=== PATIENT | male | born 1940 | race Caucasian/White ===

== ENCOUNTER 2019-05-10 07:08 | Emergency (ER) | payer MEDICARE, BC ==
--- NOTE | 2019-05-10 07:19 | ED ---
Psychiatric Complaint - HPI Summary HPI Summary: 78-year-old male with a significant past medical history of anxiety, depression presents to the emergency department today with a chief complaint of suicidal ideation. Patient states the last few weeks he has become significantly more depressed due to a "thumping in his head". He states because of the something he has not been able to go to sleep and it has been affecting his mood. he states it is been causing him to think about killing himself so he may get some rest. He states he does not have a plan but did mention that he has checked out the bridge at [facility] and thought that would be a quick way "to do it" but he has not inspected the railings yet. He states due to sleep disturbance he has had an decrease in appetite and reports a 15 pound weight loss over the last month. He denies any recent alcohol, recreational drug use, smoking. he states he does not have a counselor. Patient was brought in by 941 order after comes he himself called the police as he felt worried that he would commit suicide. He is very cooperative and seeking help. He has not made any suicidal gestures and denies a past history of suicidal gestures. He does admit to having firearms at home including a 22 and a shotgun. he states he does not currently take any medication other than melatonin which he uses for sleep. His arrived shortly after his arrival. He states he had similar feelings in the past" a few years ago" and medication did not help him. He states he went to [place] as a psychological inpatient where they did ECT which he says helped tremendously. He is looking to have this treatment done to him again. He denies any physical pain including chest pain, shortness breath, abdominal pain, pain in his ears, changes in vision, pain with urination, hearing voices. - History Of Current Complaint Time Seen by Provider: 05/10/19 07:18 Hx Obtained From: Patient Onset/Duration: Lasting Weeks Timing: Constant Severity Initially: Mild Severity Currently: Severe Character: Depressed, Anxious Aggravating Factor(s): Recent Stress - Buzzing in his head Alleviating Factor(s): Other - ECT Associated Signs And Symptoms: Positive: Sleep Disturbance, Appetite Change Related History: Positive For: Prior Psychiatric Issues Has Suicidal: Reports: Thoughts, With A Plan. Denies: Demonstrates Gesture, Has Prior Attempt(s) Has Homicidal: Denies: Thoughts - Risk Factor(s) Completed Suicide Risk Factors: Male, Age Greater Than 60, White [place] - Allergies/Home Medications Allergies/Adverse Reactions: Allergies Allergy/AdvReac Type Severity Reaction Status Date / Time MS Bacitracin Allergy Severe Swelling Verified 07/31/14 15:28 [From Neosporin] MS Neomycin [From Neosporin] Allergy Severe Swelling Verified 07/31/14 15:28 MS Polymyxin B Allergy Severe Swelling Verified 07/31/14 15:28 [From Neosporin] Chemicals AdvReac Mild See Comment Uncoded 07/31/14 15:28 Home Medications: Home Medications NK [No Home Medications Reported] 05/10/19 [History Confirmed 05/10/19] PMH/Surg Hx/FS Hx/Imm Hx Endocrine/Hematology History: Denies: Hx Anticoagulant Therapy, Hx Diabetes, Hx Thyroid Disease Cardiovascular History: Reports: Hx Hypertension Respiratory History: Denies: Hx Asthma, Hx Chronic Obstructive Pulmonary Disease (COPD) GI History: Denies: Hx Ulcer Psychiatric History: Reports: Hx Anxiety, Hx Depression Denies: Hx Eating Disorder, Hx of Violent Episodes Against Others - Cancer History Cancer Type, Location and Year: 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 - Surgical History Surgery Procedure, Year, and Place: appy at age 14yrs Infectious Disease History: Reports: Hx Hepatitis - HEP A 1989 Denies: Hx Human Immunodeficiency Virus (HIV) - Social History Alcohol Use: Rare Substance Use Type: Reports: None Smoking Status (MU): Never Smoked Tobacco Review of Systems Constitutional: Negative Cardiovascular: Negative Respiratory: Negative Gastrointestinal: Negative Skin: Negative Neurological: Negative Positive: Anxious, Depressed All Other Systems Reviewed And Are Negative: Yes Physical Exam Triage Information Reviewed: Yes Vital Signs Reviewed: Yes Appearance: Positive: Well-Appearing, No Pain Distress, Well-Nourished, Thin Skin: Positive: Warm, Skin Color Reflects Adequate Perfusion Head/Face: Positive: Normal Head/Face Inspection Eyes: Positive: Normal, EOMI ENT: Positive: Hearing grossly normal, TMs normal. Negative: Hoarse voice Respiratory/Lung Sounds: Positive: Clear to Auscultation, Breath Sounds Present Cardiovascular: Positive: RRR, S1, S2 Abdomen Description: Positive: Nontender, Soft Bowel Sounds: Positive: Present Musculoskeletal: Positive: Strength/ROM Intact Neurological: Positive: Sensory/Motor Intact, Normal Gait, Facial Symmetry, Speech Normal. Negative: Slurred Speech Psychiatric: Positive: Normal AVPU Assessment: Alert Procedures - Sedation Patient Received Moderate/Deep Sedation with Procedure: No Diagnostics - Laboratory Result Diagrams: 05/10/19 07:32 05/10/19 07:32 Lab Statement: Any lab studies that have been ordered have been reviewed, and results considered in the medical decision making process. Course/Dx - Course Course Of Treatment: Patient was evaluated in the emergency department today on a 941 order for suicidal ideation. Upon arrival to the emergency department he was placed in a safe room. Since his arrival he was under constant observation due to suicide risk. He was seen and examined. He was changed in hospital scrubs and his belongings were inventoried. Laboratory orders including blood and urine analysis were ordered to look for any acute medical problems. His presented to the emergency room and remained with him for the duration of his stay. Laboratory results came back showing mild hyponatremia with a corrected sodium of 127 for mild height per glycemia of 125. This is his baseline when compared to other results. He is currently asymptomatic for hyponatremia. His urinalysis revealed evidence of red blood cells, protein, ketones and epithelial cells. This appears to be a contaminated catch however these results could be explained by the patient's history as he states he has had a significantly decreased appetite due to his symptoms. Toxicology screen showed evidence of recent cannabinoid use. He was cleared for mental health evaluation as it was no acute medical findings. Psychiatric services evaluated the patient and determined he may follow up with psyciatric services in [facility] for ECT therapy. He was sent home with a diagnosis of depression. - Differential Dx/Clinical Impression Differential Diagnosis/HQI/PQRI: Positive: Acute Psychosis, Anxiety, Depression , Suicide Attempt, Suicidal Ideation, Suicidal Gesture Provider Diagnosis: Depression - Physician Notifications Discussed Care Of Patient With: Arnie Rushing Discharge ED - Sign-Out/Discharge Documenting (check all that apply): Patient Departure - Discharge Plan Condition: Stable Disposition: PSYCHIATRIC FACILITY-OTHER Referrals: Rosa Rhoades MD [Primary Care Provider] - - Billing Disposition and Condition Condition: STABLE Disposition: Psychiatric Facility Other
--- OUTSIDE RECORDS SUMMARY | 2019-05-10 07:22 | XMS REPORT | Continuity of Care Document ---
:1940 External Reference #:[id number] Author Name IJEOMA Hong Address [address] [place] [id number] Problems Active Problems Provider Date Obstructive sleep apnea of adult Onset: 02/12/2016 Hypertensive disorder Onset: 11/14/2013 Social History Type Date Description Comments Sex Unknown Allergies, Adverse Reactions, Alerts Active Allergies Reaction Severity Comments Date Bee Stings No Reaction Indicated 03/02/2019 Topical Neopsorin local swelling 03/02/2019 Medications Active Medications SIG Qnty Indications Ordering Provider Date Clonazepam 1 tab 2 x daily 45tabs H93.A3 IJEOMA Hong 05/08/2019 0.25mg as needed. May Tablets Dispers increase to 2 tabs at bedtime as needed. Immunizations CPT Code Status Date Vaccine Lot # [id number] Given 04/10/2018 Influenza Virus Vaccine, Split, Preserv Free, Intradermal Use 44665 Given 04/10/2018 Flu High Dose 08493 Given 04/10/2018 Flumist 81049 Given 04/10/2018 Influenza Virus Vaccine, Quadrivalent, Split, Im Use 0.25ML 10563 Given 04/10/2018 Influenza Virus Vaccine, Quadrivalent, Split, Im Use 0.25ML 60641 Given 04/10/2018 Influenza Virus Vaccine, Quadrivalent, Split, Preservative Free 71081 Given 04/10/2018 Flu < 65 years 77613 Given 04/10/2018 Influenza Virus Vaccine, Quadrivalent, Split, Im Use 0.25ML 29552 Given 06/06/2017 Influenza Virus Vaccine, Quadrivalent, Split, Im Use 0.25ML 15017 Given 06/06/2017 Influenza Virus Vaccine, Split, Preserv Free, Intradermal Use 84532 Given 06/06/2017 Flu High Dose 30551 Given 06/06/2017 Influenza Virus Vaccine, Quadrivalent, Split, Im Use 0.25ML 99213 Given 06/06/2017 Influenza Virus Vaccine, Quadrivalent, Split, Im Use 0.25ML 29640 Given 06/06/2017 Flumist 74849 Given 06/06/2017 Influenza Virus Vaccine, Quadrivalent, Split, Preservative Free 71153 Given 06/06/2017 Flu < 65 years 60905 Given 05/11/2016 Influenza Virus Vaccine, Quadrivalent, Split, Im Use 0.25ML 03095 Given 05/11/2016 Influenza Virus Vaccine, Split, Preserv Free, Intradermal Use 77228 Given 05/11/2016 Flu High Dose 53396 Given 05/11/2016 Influenza Virus Vaccine, Quadrivalent, Split, Im Use 0.25ML 26154 Given 05/11/2016 Influenza Virus Vaccine, Quadrivalent, Split, Im Use 0.25ML 70309 Given 05/11/2016 Flumist 71700 Given 05/11/2016 Influenza Virus Vaccine, Quadrivalent, Split, Preservative Free 40489 Given 05/11/2016 Flu < 65 years 42867 Given 05/07/2015 Influenza Virus Vaccine, Quadrivalent, Split Virus, Im Use 0.5ML 36319 Given 05/07/2015 Flu High Dose 24664 Given 05/07/2015 Flumist 76507 Given 05/07/2015 Influenza Virus Vaccine, Quadrivalent, Split, Preservative Free 06927 Given 05/07/2015 Flu < 65 years 34737 Given 05/16/2013 Influenza Virus Vaccine, Quadrivalent, Split, Im Use 0.25ML 79450 Given 05/16/2013 Influenza Virus Vaccine, Quadrivalent, Split, Im Use 0.25ML 47020 Given 05/16/2013 Influenza Virus Vaccine, Quadrivalent, Split, Im Use 0.25ML 01154 Given 05/16/2013 Influenza Virus Vaccine, Quadrivalent, Split, Im Use 0.25ML 18379 Given 05/16/2013 Flu < 65 years 07212 Given 05/16/2013 Influenza Virus Vaccine, Quadrivalent, Split, Preservative Free 82854 Given 05/16/2013 Flumist 12968 Given 05/16/2013 Flu High Dose 47886 Given 05/16/2013 Influenza Virus Vaccine Split Virus Intramuscular Use 0.5ML 45154 Given 07/14/2010 Tdap - Boostrix/Adacel 47688 Given 07/14/2010 Tdap - Boostrix/Adacel 76677 Given 07/14/2010 Tdap - Boostrix/Adacel 50185 Refused 07/07/2018 Prevnar 13 76134 Refused 07/07/2018 Pneumovax - for >=2years - PPSV23 Vital Signs Date Vital Result Comment 05/08/2019 9:53am BP Systolic 148 mmHg BP Diastolic 78 mmHg Height 71 inches 5'11" Weight 147.00 lb Heart Rate 84 /min Body Temperature 96.5 F O2 % BldC Oximetry 99 % BMI (Body Mass Index) 20.5 kg/m2 07/07/2018 1:26pm BP Systolic 158 mmHg Height 72.00 inches 6'0.00" Weight 164.00 lb Heart Rate 71 /min Body Temperature 97.1 F O2 % BldC Oximetry 99 % BMI (Body Mass Index) 22.24 kg/m2 Results Description No Information Available Procedures Description No Information Available Medical Devices Description No Information Available Encounters Type Date Location Provider Dx Diagnosis Office Visit 05/08/2019 9:45a [facility] Main IJEOMA Hong H93.A3 Pulsatile tinnitus, 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 May increase to 2 tabs at bedtime as needed.Comments:Supportive listening. Acute without other symptoms. Declined referral to ENT and imaging at this time. Reviewed causes and treatments. Disc BP as potential cause. Will record BP, start short course of clonazempam and follow up on Mon. Sooner as needed. Consider CT angio of brain as disc. Disc.reasons to seek medical attention. He and state understanding. SE of benzo reviewed. From Upto Date: Suspected vascular tinnitus ?? Patients with infrequent episodes of pulsatile tinnitus or those with short duration, mild tinnitus can be initially observed.However, because frequent or constant pulsatile tinnitus can herald a potentially life- threatening illness, all of these patients require evaluation by an [employer] promotional sales or neurotologist. When physical examination does not reveal a specific vascular or musculoskeletal source in these patients, further investigation to rule out a central nervous system lesion such as a dural arteriovenous fistula (AVF), arteriovenous malformation (AVM) or aneurysm, or a skull base tumor should be carried out [34].The gold standard for AVF diagnosingintracranial vascular lesions is angiography. These lesions often can also be diagnosed noninvasively with magnetic resonance (MR) angiography [35] or computed tomographic (CT) [id number] Anxiety disorder due to known physiological [id number] Body mass index (BMI) 20.0-20.9, adult Functional Status Description No Information Available Mental Status Description No Information Available Referrals Description No Information Available
[2019-05-10 07:46] LABS: ABS Eosinophils 0.1 10^3/ul (0-0.6); ABS Lymphocytes 0.6 10^3/ul (1.0-4.8); ABS Monocytes 0.6 10^3/ul (0-0.8); ABS Neutrophils 4.3 10^3/ul (1.5-7.7); Hematocrit 43 % (42-52); Hemoglobin 14.9 g/dL (14.0-18.0); Lymphocyte % 10.1 %; Mean Corpuscular HGB Conc 35 g/dL (31-36); Mean Corpuscular Hemoglobin 31 pg (27-31); Mean Corpuscular Volume 89 fL (80-94); Mean Platelet Volume 7.2 fL (7.4-10.4); Nucleated Red Blood Cells % 0.2; Platelet Count 306 10^3/uL (150-450); Red Blood Count 4.82 10^6 /uL (4.18-5.48); Red Cell Distribution Width 13 % (10-15); White Blood Count 5.5 10^3/uL (3.5-10.8)
[2019-05-10 08:03] LABS: ALT 19 U/L (7-52); AST 29 U/L (13-39); Albumin 4.7 g/dL (3.2-5.2); Albumin/Globulin Ratio 1.6 (1-3); Alkaline Phosphatase 87 U/L (34-104); Anion Gap 8 mmol/L (2-11); BUN/Creatinine Ratio 14.7 (8-20); Blood Urea Nitrogen 14 mg/dL (6-24); CO2 Carbon Dioxide 27 mmol/L (22-32); Calcium 9.5 mg/dL (8.6-10.3); Chloride 92 mmol/L (101-111); EGFR Non-African American 76.9 (>60); Glucose 125 mg/dL (70-100); Potassium 3.6 mmol/L (3.5-5.0); Sodium 127 mmol/L (135-145); Total Protein 7.7 g/dL (6.4-8.9)
[2019-05-10 08:21] LABS: Acetaminophen < 15 mcg/mL; Alcohol < 10 mg/dL (<10); Salicylate < 2.50 mg/dL (<30)
[2019-05-10 08:36] LABS: TSH (Thyroid Stimulating Horm) 1.28 mcIU/mL (0.34-5.60)
[2019-05-10 10:09] LABS: Urine Benzodiazepine Screen None Detected (None Detect); Urine Opiates Screen None Detected (None Detect)
[2019-05-10 10:14] LABS: Urine Appearance Cloudy; Urine Bacteria Absent (Absent); Urine Bilirubin Negative (Negative); Urine Blood Negative (Negative); Urine Color Yellow; Urine Glucose Negative (Negative); Urine Ketones Trace (Negative); Urine Nitrite Negative (Negative); Urine Protein 1+(30 mg/dL) (Negative); Urine Red Blood Cell 1+(3-5/hpf) (Absent); Urine Specific Gravity 1.015 (1.010-1.030); Urine Squamous Epithelial Cell Present (Absent); Urine Urobilinogen Negative (Negative); Urine White Blood Cell Trace(0-5/hpf) (Absent)
[2019-05-10 10:40] VITALS: BP 0/0
== END 2019-05-10 10:23 ==
LOC: ED 07:08
DX: F32.9 Major depressive disorder, single episode, unspecified (principal); I10 Essential (primary) hypertension; F41.9 Anxiety disorder, unspecified; Z85.820 Personal history of malignant melanoma of skin; Z88.8 Allergy status to other drugs, medicaments and biological substances
CPT/HCPCS: 36415; 80053; 80307; 80320; 80329; 81003; 81015; 84443; 85025; 87086; 99284; G0480

== ENCOUNTER 2023-01-23 17:29 | Inpatient (IN) ==
[2023-01-23 18:27] LABS: ABS Lymphocytes 0.5 10^3/uL (1.0-4.8); ABS Monocytes 0.5 10^3/uL (0.0-1.1); ABS Neutrophils 5.3 10^3/uL (1.5-7.6); Eosinophil % 0.1 %; Hematocrit 39.4 % (38-53); Lymphocyte % 8.2 %; Mean Corpuscular Hemoglobin 31.5 pg (27-33); Mean Corpuscular Hgb Conc 35.4 g/dL (31-36); Mean Corpuscular Volume 88.8 fL (80-97); Mean Platelet Volume 7.4 fL (7.5-11.2); Platelet Count 240 10^3/uL (150-450); Red Blood Count 4.44 10^6/uL (4.06-5.63); Red Cell Distribution Width 12.7 % (12-17); White Blood Count 6.4 10^3/uL (3.6-10.2)
[2023-01-23 18:37] LABS: ALT 17 U/L (7-52); AST 25 U/L (13-39); Albumin 4.3 g/dL (3.2-5.2); Albumin/Globulin Ratio 1.8 (1-3); Alkaline Phosphatase 55 U/L (35-149); Anion Gap 7 mmol/L (2-16); Blood Urea Nitrogen 16 mg/dL (6-24); CO2 Carbon Dioxide 25 mmol/L (22-32); Calcium 9.2 mg/dL (8.6-10.3); Chloride 97 mmol/L (101-111); Globulin 2.4 g/dL (2-4); Glucose 107 mg/dL (70-100); Potassium 4.2 mmol/L (3.5-5.0); Sodium 129 mmol/L (135-145); Total Protein 6.7 g/dL (6.4-8.9); eGFR CKD-EPI 88.9 (>60)
[2023-01-23 18:40] LABS: Alcohol, S < 13 mg/dL (<13); Salicylate < 2.50 mg/dL (<30)
[2023-01-23 18:42] LABS: Acetaminophen < 15 mcg/mL
[2023-01-23 18:56] LABS: TSH Ultra Thyroid Stim Horm 1.32 mcIU/mL (0.34-5.60)
[2023-01-23 20:43] LABS: Urine Appearance Cloudy; Urine Bilirubin Negative (Negative); Urine Blood Negative (Negative); Urine Color Yellow; Urine Glucose Negative (Negative); Urine Ketones 1+ (Negative); Urine Nitrite Negative (Negative); Urine Protein Negative (Negative); Urine Specific Gravity 1.017 (1.002-1.030); Urine Urobilinogen Negative (Negative)
[2023-01-23 20:58] LABS: Urine Benzodiazepine Screen None Detected (None Detect); Urine Cannabinoids Screen None Detected (None Detect); Urine Opiates Screen None Detected (None Detect)
[2023-01-23] MEDS ORDERED: NS 0.9% 1000 ml BAG 1,000 ML IV ONE (22:25)
[2023-01-24 06:16] LABS: Calcium 8.4 mg/dL (8.6-10.3); Creatinine, Serum 0.63 mg/dL (0.67-1.17); Potassium 4.1 mmol/L (3.5-5.0); eGFR CKD-EPI 95.6 (>60)
[2023-01-24] MEDS ORDERED: Al Hydrox/Mg Hydrox/Simet LIQ 30 ML UDC PO PRN (08:53)
[2023-01-24] MEDS: Vitamin THERAPEUTIC TAB PO SCH (11:21)
[2023-01-25] MEDS: Vitamin THERAPEUTIC TAB PO SCH (08:32)
[2023-01-25 08:37] LABS: Albumin 4.5 g/dL (3.2-5.2); Albumin/Globulin Ratio 1.7 (1-3); Calcium 9.2 mg/dL (8.6-10.3); Creatinine, Serum 0.75 mg/dL (0.67-1.17); Globulin 2.6 g/dL (2-4); HDL Cholesterol 78.5 mg/dL; Potassium 3.5 mmol/L (3.5-5.0); Total Bilirubin 0.6 mg/dL (0.2-1.0); Total Protein 7.1 g/dL (6.4-8.9); eGFR CKD-EPI 90.7 (>60)
[2023-01-25] MEDS ORDERED: Polyethylene Glycol 3350 17 GM PACKET PO SCH (09:00)
[2023-01-25 09:01] VITALS: BP 168/89
== END 2023-01-25 15:27 | disposition home or self-care (01) | DRG 885 ==
LOC: ED 17:29 → EDHOLD 01-24 08:53 → BSU 01-24 10:55
PROVIDERS: ADMIT Psychiatry & Neurology Psychiatry; ATTEND Psychiatry & Neurology Psychiatry

== ENCOUNTER 2023-12-14 10:21 | Inpatient (IN) ==
[2023-12-14 11:24] LABS: ABS Lymphocytes 0.3 10^3/uL (1.0-4.8); ABS Monocytes 0.3 10^3/uL (0.0-1.1); ABS Neutrophils 5.1 10^3/uL (1.5-7.6); Eosinophil % 0.2 %; Hematocrit 41.3 % (38-53); Hemoglobin 14.3 g/dL (13.2-16.3); Lymphocyte % 5.9 %; Mean Corpuscular Hemoglobin 31.2 pg (27-33); Mean Corpuscular Hgb Conc 34.5 g/dL (31-36); Mean Corpuscular Volume 90.4 fL (80-97); Mean Platelet Volume 7.3 fL (7.5-11.2); Nucleated Red Blood Cells % 0.1 %/100WBC (0.0-0.8); Platelet Count 197 10^3/uL (150-450); Red Blood Count 4.57 10^6/uL (4.06-5.63); White Blood Count 5.8 10^3/uL (3.6-10.2)
[2023-12-14 11:49] LABS: High Sens Troponin Baseline 10 pg/mL (<20)
[2023-12-14 12:04] LABS: ALT 21 U/L (7-52); AST 29 U/L (13-39); Acetaminophen < 15 mcg/mL; Albumin 4.2 g/dL (3.2-5.2); Albumin/Globulin Ratio 1.8 (1-3); Alcohol, S < 13 mg/dL (<13); Alkaline Phosphatase 59 U/L (35-149); Anion Gap 8 mmol/L (2-16); Blood Urea Nitrogen 15 mg/dL (6-24); CO2 Carbon Dioxide 25 mmol/L (22-32); Chloride 95 mmol/L (101-111); Creatine Kinase 355 U/L (10-223); Creatinine, Serum 0.92 mg/dL (0.67-1.17); Globulin 2.4 g/dL (2-4); Glucose 103 mg/dL (70-100); Potassium 4.3 mmol/L (3.5-5.0); Salicylate < 2.50 mg/dL (<30); Sodium 128 mmol/L (135-145); Total Bilirubin 0.6 mg/dL (0.2-1.0); Total Protein 6.6 g/dL (6.4-8.9); eGFR CKD-EPI 83.1 (>60)
[2023-12-14 12:18] LABS: TSH Ultra Thyroid Stim Horm 1.15 mcIU/mL (0.34-5.60)
[2023-12-14 12:25] LABS: Lipase 37 U/L (11.0-82.0)
[2023-12-14 12:41] LABS: Urine Appearance Clear; Urine Bilirubin Negative (Negative); Urine Blood Negative (Negative); Urine Color Light-Yellow; Urine Glucose Negative (Negative); Urine Ketones Trace (Negative); Urine Nitrite Negative (Negative); Urine Protein Negative (Negative); Urine Specific Gravity 1.012 (1.002-1.030); Urine Urobilinogen Negative (Negative)
[2023-12-14 12:54] LABS: High Sensitivity Troponin 1 Hr 9 pg/mL (<20); Urine Benzodiazepine Screen None Detected (None Detect); Urine Cannabinoids Screen Presumptive Positive (None Detect); Urine Opiates Screen None Detected (None Detect)
[2023-12-14] MEDS: Iohexol 300 (CONTRAST) 10 ML SDV IV ONE (13:23)
[2023-12-14] MEDS ORDERED: Al Hydrox/Mg Hydrox/Simet LIQ 30 ML UDC PO PRN (18:58)
[2023-12-14] MEDS: CMCS:Dorzolamide/Timolol OPTH (NF) 10 ML BOT RIGHT EYE SCH (20:54)
[2023-12-14] MEDS: prednisoLONE 1% OPHTH.SUSP 5 ML OPHTH.SUSP RIGHT EYE SCH (21:54)
[2023-12-15 08:29] LABS: HDL Cholesterol 73.9 mg/dL
[2023-12-15] MEDS: Vitamin THERAPEUTIC TAB PO SCH (08:29)
[2023-12-15] MEDS: Sodium Phosphate ADULT ENEMA 133 ML BTL PR ONE (13:10)
[2023-12-15 15:26] LABS: Calcium 9.1 mg/dL (8.6-10.3); Creatinine, Serum 0.69 mg/dL (0.67-1.17); Potassium 4.3 mmol/L (3.5-5.0); eGFR CKD-EPI 92.4 (>60)
[2023-12-19 08:29] VITALS: BP 174/92
== END 2023-12-19 11:57 | disposition home or self-care (01) | DRG 885 ==
LOC: ED 10:21 → EDHOLD 17:52 → BSU 18:28
PROVIDERS: ADMIT Psychiatry & Neurology Psychiatry; ATTEND Psychiatry & Neurology Psychiatry